=== PATIENT | male | born 1965 | race Caucasian/White ===

== ENCOUNTER 2018-11-13 06:08 | Emergency (ER) | payer MEDICAID ==
[~2018-11-13] VITALS: Ht 182.9 cm; Wt 102.0 kg
[2018-11-13 07:19] VITALS: BP 189/124
== END 2018-11-13 08:00 | disposition home or self-care (01) ==
LOC: ED 07:40
DX: L60.0 Ingrowing nail (principal); I10 Essential (primary) hypertension
CPT/HCPCS: 11730; 99282; 99283

== ENCOUNTER 2018-11-17 21:16 | Emergency (ER) | payer MEDICAID ==
[~2018-11-17] VITALS: Ht 182.9 cm; Wt 100.6 kg
[2018-11-17 22:04] VITALS: BP 137/106
== END 2018-11-17 22:09 ==
LOC: ED 22:00
DX: L60.0 Ingrowing nail (principal); I10 Essential (primary) hypertension; Z48.01 Encounter for change or removal of surgical wound dressing
CPT/HCPCS: 99283

== ENCOUNTER 2018-11-20 05:05 | Emergency (ER) | payer MEDICAID ==
[~2018-11-20] VITALS: Ht 182.9 cm; Wt 102.0 kg
[2018-11-20 05:10] VITALS: BP 178/114
== END 2018-11-20 05:48 | disposition home or self-care (01) ==
LOC: ED 05:34
DX: A64 Unspecified sexually transmitted disease (principal); R36.9 Urethral discharge, unspecified; I10 Essential (primary) hypertension
CPT/HCPCS: 87491; 87591; 96372; 99283; J0696

== ENCOUNTER 2019-10-24 12:31 | Emergency (ER) | payer SELFPAY ==
[~2019-10-24] VITALS: Ht 177.8 cm; Wt 104.0 kg
[~2019-10-24 12:31] MED LIST: LISI-167 PO
--- NOTE | 2019-10-24 13:05 | NUR ---
this tech did ekg
[2019-10-24] MEDS ORDERED: MORPHINE SULFATE 4 MG/ML, 1ML ONE ×2 (13:14→15:29)
[2019-10-24] MEDS: MORPHINE SULFATE 4 MG/ML, 1ML IVPush PRN ×2 (13:19→15:31)
[2019-10-24] MEDS ORDERED: ONDANSETRON 2MG/ML, 2ML IVPush ONE (13:30)
[2019-10-24] MEDS ORDERED: SODIUM CHLORIDE FLUSH 10ML SYR IVF ONE (13:30)
--- NOTE | 2019-10-24 13:34 | NUR ---
Patient comes in with R-sided abdominal pain after getting out of bed this morning, he describes pain as 9/10. Denies n/v/d, A&Ox4, given 4 mg IV morphine. Urine and blood collected and sent to lab. No further needs at this time.
[2019-10-24 13:36] LABS: BASOPHILS # (AUTO) 0.01 x10^3/uL (0-0.1); BASOPHILS % (AUTO) 0 % (0-1); EOSINOPHILS # (AUTO) 0.04 x10^3/uL (0-0.4); EOSINOPHILS % (AUTO) 1 % (1-7); LYMPHOCYTES # (AUTO) 1.45 x10^3/uL (1-3.4); LYMPHOCYTES % (AUTO) 28 % (22-44); MD NO; MEAN CORPUSCULAR HEMOGLOBIN 29.6 pg (27.5-34.5); MEAN CORPUSCULAR HGB CONC 33.6 g/dL (33.2-36.2); MEAN CORPUSCULAR VOLUME 88.1 fL (81-97); MEAN PLATELET VOLUME 8.9 fL (7.4-10.4); MONOCYTES # (AUTO) 0.33 x10^3/uL (0.2-0.8); MONOCYTES % (AUTO) 6 % (2-9); NEUTROPHILS # (AUTO) 3.44 x10^3/uL (1.8-6.8); NEUTROPHILS % (AUTO) 65 % (42-75); PLATELET COUNT 173 x10^3/uL (130-400); RED BLOOD COUNT 5.21 x10^6/uL (4.38-5.82); RED CELL DISTRIBUTION WIDTH 14.1 % (9.4-14.8)
[2019-10-24 13:42] LABS: MICROSCOPIC AUTO
--- NOTE | 2019-10-24 13:45 | NUR ---
ER GUERRERO Mcgill notified of bp and pt status. BP slight improvement and pain controlled
[2019-10-24 13:48] LABS: ALANINE AMINOTRANSFERASE 28 U/L (12-78); ALBUMIN 3.7 g/dL (3.4-5.0); ANION GAP 7 mmol/L (5-15); CHLORIDE 110 mmol/L (98-107); CREATININE 1.39 mg/dL (0.7-1.3)
[2019-10-24 13:50] LABS: ALKALINE PHOSPHATASE 76 U/L (45-117); BILIRUBIN,TOTAL 0.3 mg/dL (0.2-1.0); TOTAL PROTEIN 7.8 g/dL (6.4-8.2)
--- NOTE | 2019-10-24 14:33 | NUR ---
BREAK RN: PT'S FRIEND AT ASKED QUESTIONS REGARDING PLAN OF CARE. DISCUSSED AT LENGTH NEED FOR CT AND THEN MD WILL DISCUSS TEST WITH PATIENT. PT AND FRIEND VERBALIZED UNDERSTANDING
--- NOTE | 2019-10-24 14:43 | NUR ---
BREAK RN: PT TO CT SCAN
[2019-10-24] MEDS ORDERED: OMNIPAQUE 350 MG/ML, 100ML BOTTLE ONE (15:00)
--- NOTE | 2019-10-24 15:03 | NUR ---
PT BACK FROM IMAGING.
[2019-10-24 15:18] VITALS: BP 174/117
--- NOTE | 2019-10-24 16:00 | NUR ---
ERMD LAW AT BEDSIDE FOR EVALUATION
[2019-10-24] MEDS ORDERED: HYDROcodone/APAP 5/325 TABLET ONE (16:16)
--- NOTE | 2019-10-24 16:18 | NUR ---
DISCHARGE INSTRUCTIONS REVIEWED
[2019-10-24] MEDS ORDERED: HYDROcodone/APAP 5/325 TABLET PO ONE (16:30)
== END 2019-10-24 16:26 | disposition home or self-care (01) ==
LOC: ED 13:59
DX: M79.18 Myalgia, other site (principal); R10.9 Unspecified abdominal pain; M54.6 Pain in thoracic spine; R07.9 Chest pain, unspecified; R00.0 Tachycardia, unspecified
CPT/HCPCS: 36415; 71275; 74174; 80053; 81001; 83690; 85025; 93005; 96374; 96376; 99285; J2270; Q9967

== ENCOUNTER 2019-10-30 09:06 | Emergency (ER) | payer SELFPAY ==
[~2019-10-30] VITALS: Ht 182.9 cm; Wt 104.5 kg
[2019-10-30] MEDS ORDERED: MORPHINE SULFATE 4 MG/ML, 1ML ONE (09:41)
[2019-10-30] MEDS ORDERED: ONDANSETRON 2MG/ML, 2ML ONE (09:41)
[2019-10-30] MEDS ORDERED: MORPHINE SULFATE 4 MG/ML, 1ML IVPush PRN (10:00)
[2019-10-30] MEDS ORDERED: SODIUM CHLORIDE FLUSH 10ML SYR IVF ONE (10:00)
[2019-10-30] MEDS ORDERED: ONDANSETRON 2MG/ML, 2ML IVPush ONE (10:00)
--- NOTE | 2019-10-30 10:04 | NUR ---
PT PRESENTS TO ED WITH C/O RIGHT THIGH PAIN, WORSE WHEN STANDING UP FOR A PROLONGED TIME. PT STATES THAT HE ALSO HAS DIMINISHED SENSATION/TINGLING TO RIGHT UPPER THIGH. ONSET OF SX 6 DAYS AGO. PT DENIES BLADDER/BOWEL DYSFUNCTION. PT HAS FULL STRENGTH AND ROM TO ALL EXTREMITIES, NO FOCAL NEURO DEFICITS. PT WAS SEEN IN THIS ED FOR RT FLANK PAIN 10/23, PT STATES THIS HAS RESOLVED. PT HAS HX HYPERTENSION, CURRENT BP 201/129, PT STATES "IT'S ALWAYS THAT HIGH, NOTHING HELPS." PT DENIES HEADACHE, CHEST PAIN, SOB. PT A&O, RESPS EVEN AND UNLABORED, SPEECH CLEAR. ALL MONITORS IN PLACE, CALL LIGHT IN REACH.
--- NOTE | 2019-10-30 10:05 | NUR ---
PT TO CT. PT REPORTS PAIN LEVEL TO RIGHT THIGH DECREASED FROM 10/10 TO 6/10.
--- NOTE | 2019-10-30 10:12 | NUR ---
RECEIVED REPORT FROM MIRYAM RED. PT IN RADIOLOGY.
[2019-10-30] MEDS ORDERED: CAPTOPRIL 50 MG TABLET PO ONE (10:30)
[2019-10-30] MEDS ORDERED: CAPTOPRIL 25 MG TABLET PO ONE (10:30)
[2019-10-30 11:04] VITALS: BP 160/88
--- NOTE | 2019-10-30 11:30 | NUR ---
TASK RN: Patient/Caregiver given discharge instructions and they have confirmed that they understand the instructions. Patient ambulatory with steady gait. PT LEFT WITH ALL PERSONAL BELONGINGS.
== END 2019-10-30 11:32 | disposition home or self-care (01) ==
LOC: ED 09:20
DX: M51.26 Other intervertebral disc displacement, lumbar region (principal); M79.651 Pain in right thigh; I10 Essential (primary) hypertension; R53.1 Weakness; F17.290 Nicotine dependence, other tobacco product, uncomplicated
CPT/HCPCS: 72131; 96374; 96375; 99284; J2270; J2405

== ENCOUNTER 2020-02-19 09:48 | Emergency (ER) | payer SELFPAY ==
[~2020-02-19] VITALS: Ht 175.3 cm; Wt 105.2 kg
--- NOTE | 2020-02-19 10:00 | NUR ---
INITIAL PT CONTACT. PT C/O BEING OUT OF 20MG LISINOPRIL X3 WEEKS, NO ADDITIONAL COMPLAINTS. PT UPRIGHT ON GURNEY, CALL LIGHT WITHIN REACH. ERP AT BEDSIDE.
[2020-02-19] MEDS ORDERED: LISINOPRIL 20 MG TABLET ONE (10:24)
[2020-02-19] MEDS ORDERED: LISINOPRIL 20 MG TABLET PO ONE (10:30)
[2020-02-19 10:43] LABS: BASOPHILS % (AUTO) 0 % (0-1); EOSINOPHILS % (AUTO) 1 % (1-7); LYMPHOCYTES % (AUTO) 40 % (22-44); MEAN CORPUSCULAR HEMOGLOBIN 28.5 pg (27.5-34.5); MEAN CORPUSCULAR HGB CONC 32.9 g/dL (33.2-36.2); MONOCYTES % (AUTO) 8 % (2-9); NEUTROPHILS % (AUTO) 51 % (42-75); PLATELET COUNT 165 x10^3/uL (130-400); RED CELL DISTRIBUTION WIDTH 14.3 % (9.4-14.8)
[2020-02-19 10:44] LABS: ANION GAP 4 mmol/L (5-15); CALCIUM 8.9 mg/dL (8.5-10.1); CHLORIDE 109 mmol/L (98-107); CREATININE 1.36 mg/dL (0.7-1.3)
[2020-02-19 10:50] LABS: MD NO
--- NOTE | 2020-02-19 10:56 | NUR ---
PT SITTING UPRIGHT ON GURNEY WATCHING TV. PT DENIES ANY NEEDS AT THIS TIME. CALL LIGHT AND PERSONAL BELONGINGS WITHIN REACH. WILL CONTINUE TO MONITOR.
[2020-02-19 11:43] VITALS: BP 200/130
--- NOTE | 2020-02-19 11:50 | NUR ---
Patient given discharge instructions and they have confirmed that they understand the instructions. Patient ambulatory with steady gait.
== END 2020-02-19 11:51 | disposition home or self-care (01) ==
LOC: ED 10:31
DX: I11.9 Hypertensive heart disease without heart failure (principal); R94.31 Abnormal electrocardiogram [ECG] [EKG]; M79.7 Fibromyalgia; Z91.19 Patient's noncompliance with other medical treatment and regimen
CPT/HCPCS: 36415; 80048; 82040; 85025; 93005; 99284

== ENCOUNTER 2020-05-17 08:51 | Emergency (ER) | payer SELFPAY ==
[~2020-05-17] VITALS: Ht 182.9 cm; Wt 104.0 kg
--- NOTE | 2020-05-17 09:17 | NUR ---
PT PRESENTS TO ED WITH C/O HTN, RAN OUT OF LISINOPRIL ONE WEEK AGO. PT DENIES CP/SOB/HEADACHE/VISUAL CHANGES. PT DENIES PAIN. PT A&O, RESPS EVEN AND UNLABORED, NADN. ALL MONITORS ATTACHED. AWAITING PROVIDER AND ORDERS.
[2020-05-17] MEDS ORDERED: LISINOPRIL 20 MG TABLET ONE (10:16)
--- NOTE | 2020-05-17 10:18 | NUR ---
ORDERED MEDICATION ADMINISTERED. EKG IN PROGRESS. LAB AT BEDSIDE
[2020-05-17] MEDS ORDERED: LISINOPRIL 20 MG TABLET PO ONE (10:30)
[2020-05-17 10:32] LABS: BASOPHILS % (AUTO) 1 % (0-1); EOSINOPHILS % (AUTO) 1 % (1-7); LYMPHOCYTES % (AUTO) 37 % (22-44); MEAN CORPUSCULAR HEMOGLOBIN 29.2 pg (27.5-34.5); MEAN CORPUSCULAR HGB CONC 33.2 g/dL (33.2-36.2); MEAN PLATELET VOLUME 8.5 fL (7.4-10.4); MONOCYTES % (AUTO) 8 % (2-9); NEUTROPHILS % (AUTO) 54 % (42-75); PLATELET COUNT 160 x10^3/uL (130-400); RED BLOOD COUNT 5.04 x10^6/uL (4.38-5.82); RED CELL DISTRIBUTION WIDTH 15.5 % (9.4-14.8)
[2020-05-17 10:33] LABS: MD NO
[2020-05-17 10:41] LABS: ALBUMIN 3.9 g/dL (3.4-5.0); ANION GAP 3 mmol/L (5-15); CALCIUM 8.9 mg/dL (8.5-10.1); CHLORIDE 113 mmol/L (98-107); CREATININE 1.53 mg/dL (0.7-1.3)
[2020-05-17] MEDS ORDERED: AMLODIPINE 5 MG TABLET ONE (11:16)
--- NOTE | 2020-05-17 11:22 | NUR ---
KIANA AND MD ALEXANDER AWARE BP TRENDING UP, NOW 213/145. PT STILL ASYMPTOMATIC, A&O, NEURO INTACT, NSR ON BRAZER CRAWLER TORCH, RESPS EVEN AND UNLABORED. HCTZ NOT IN ED OMNICELL, ORDERED FROM PHARMACY.
[2020-05-17] MEDS ORDERED: HYDROCHLOROTHIAZIDE 25 MG TABLET PO ONE (11:30)
[2020-05-17] MEDS ORDERED: AMLODIPINE 5 MG TABLET PO ONE (11:30)
--- NOTE | 2020-05-17 11:50 | NUR ---
MED STILL NOT DELIVERED, RE-REQUESTED FROM PHARMACY
--- NOTE | 2020-05-17 12:07 | NUR ---
KIANA AGRAWAL AT BEDSIDE
--- NOTE | 2020-05-17 12:19 | NUR ---
med received, pt medicated. pt a&o, resps even and unlabored, sinus tach rate 90's with no ectopy on card monitor, pt still asymptomatic. awaiting further orders.
[2020-05-17 12:45] VITALS: BP 188/129
--- NOTE | 2020-05-17 12:49 | NUR ---
pt reassessed by KIANA Newman and MD [place] aware of current bp. pt still asymtomatic, nsr on quality assurance monitor body. pt requesting discharge. to speak with pt prior to dc. PA aware of medical service technician times.
--- NOTE | 2020-05-17 13:21 | NUR ---
pt given dc instructions and script, educated regarding rx for lisinopril, hctz, and amlodipine. pt educated regarding return criteria. pt still denies cp, sob, headache, visual changes. pt a&ox4, resps even and unlabored, nsr on environmental monitoring technician with no ectopy. pt ambulatory to dc desk with steady gait, all questions answered.
== END 2020-05-17 13:22 | disposition home or self-care (01) ==
LOC: ED 10:47
DX: I10 Essential (primary) hypertension (principal); R07.89 Other chest pain
CPT/HCPCS: 36415; 71045; 80048; 82040; 85025; 93005; 99285

== ENCOUNTER 2020-07-12 10:27 | Emergency (ER) | payer SELFPAY ==
[~2020-07-12] VITALS: Ht 182.9 cm; Wt 103.5 kg
[2020-07-12] MEDS ORDERED: HYDROcodone/APAP 5/325 TABLET PO ONE (11:00)
[2020-07-12] MEDS ORDERED: SODIUM CHLORIDE FLUSH 10ML SYR IVF ONE (11:00)
[2020-07-12] MEDS ORDERED: ENALAPRILAT 1.25 MG/ML, 2ML IV ONE (11:00)
[2020-07-12] MEDS ORDERED: ENALAPRILAT 1.25 MG/ML, 2ML ONE (11:12)
[2020-07-12] MEDS ORDERED: HYDROcodone/APAP 5/325 TABLET ONE (11:12)
[2020-07-12] MEDS ORDERED: hydrALAzine 20 MG/ML, 1ML IV ONE (12:00)
[2020-07-12] MEDS ORDERED: hydrALAzine 20 MG/ML, 1ML ONE (12:27)
[2020-07-12 13:12] VITALS: BP 173/95
--- NOTE | 2020-07-12 13:23 | NUR ---
PT REC'VD DISCHARGE INSTRUCTIONS AND EDUCATION. PT HAD NO FURTHER QUESTIONS. PT AMBULATED TO DC AREA, STEADY GAIT.
== END 2020-07-12 13:26 | disposition home or self-care (01) ==
LOC: ED 12:45
DX: M77.51 Other enthesopathy of right foot and ankle (principal); G89.29 Other chronic pain; M25.571 Pain in right ankle and joints of right foot; I10 Essential (primary) hypertension; Z76.0 Encounter for issue of repeat prescription
CPT/HCPCS: 73610; 73630; 96374; 96375; 99285; J0360